=== PATIENT | female | born 1955 | race Caucasian/White ===

== ENCOUNTER 2018-09-02 13:52 | Emergency (ER) | payer OTHER ==
[~2018-09-02] VITALS: Ht 167.6 cm; Wt 63.6 kg
[2018-09-02 14:17] VITALS: BP 137/77
[2018-09-02] MEDS ORDERED: LIDOcaine 1% w/epiNEPHrine 1:200,000 30ml vial IM ONE (16:00)
[2018-09-02] MEDS ORDERED: LIDOCAINE 5% OINTMENT 35GM TP SCH (20:00)
== END 2018-09-02 19:31 | disposition home or self-care (01) ==
LOC: ER 13:53 → EDBD 13:53 → ER 19:31
DX: S82.451A Displaced comminuted fracture of shaft of right fibula, initial encounter for closed fracture (principal); S81.811A Laceration without foreign body, right lower leg, initial encounter; S50.11XA Contusion of right forearm, initial encounter; V49.88XA Car occupant (driver) (passenger) injured in other specified transport accidents, initial encounter; Y93.89 Activity, other specified; Y92.413 State road as the place of occurrence of the external cause; Y99.9 Unspecified external cause status
CPT/HCPCS: 12002; 73080; 73110; 73560; 73590; 99283; J3490; 29505